=== PATIENT | female | born 1925 | race Caucasian/White ===

== ENCOUNTER 2016-08-04 16:21 | Emergency (ER) | payer MEDICARE ==
[~2016-08-04] VITALS: Ht 154.9 cm; Wt 44.7 kg
[~2016-08-04 16:21] MED LIST: ACDPT PO; ASP81CT PO; CIPR500T78 PO; CITALOPRAM PO; CLOP75TA PO; CTLP20T PO; FRSM40T PO; KCL20TCR PO; LISI2.5T PO; Lisinopril PO; MTP25TSR PO; OMEPRAZOLE; PNT40TEC PO; PRAVASTATIN PO; RAMI2.5C PO; RAMIPRIL PO; RMP2.5C PO; SIMV40TA4 PO; SMV20T PO
--- NOTE | 2016-08-04 16:40 | ED Lower Extremity ---
General Chief Complaint: Lower Extremity Stated Complaint: R FOOT INJ Source: patient Exam Limitations: no limitations History of Present Illness Time seen by provider: 16:35 Initial Comments The patient is an 89-year-old white female who lives alone. She was in her kitchen and suddenly felt weak and decided she needed to sit down. She attempted to sit on the floor and somehow rolled her right ankle underneath her. Her neighbor came by serendipitously and found her on the floor. She attempted to help her up but the patient was unwilling to stand on her right foot because of pain. 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 Onset: just prior to arrival Pain/Injury Location: right ankle Method of Injury: twisted Allergies and Home Medications Allergies Coded Allergies: codeine (Verified Allergy, Unknown, RASH, 05/03/14) Swelling morphine (Verified Allergy, Unknown, RASH, 05/03/14) Swelling Home Medications Acetaminophen/Diphenhydramine 1 Ea Tab, 1 TAB PO HS, (Reported) Aspirin 81 Mg Chew, 81 MG PO DAILY, (Reported) Citalopram Hydrobromide 20 Mg Tablet, 20 MG PO HS, (Reported) Clopidogrel Bisulfate 75 Mg Tablet, 75 MG PO DAILY, (Reported) Metoprolol Succinate 25 Mg Tab, 12.5 MG PO DAILY, (Reported) TAKES 1/2 (25MG) TABLET Pantoprazole Sod 40 Mg Tab, 40 MG PO DAILY, (Reported) Simvastatin 40 Mg Tablet, 40 MG PO HS, (Reported) [Lisinopril] 10 MG TAB, 10 MG PO DAILY, #30 Ref 1 Prescribed by: BRANDT GERBER on 05/04/14 8631 Constitutional: see HPI EENTM: hearing loss Respiratory: no symptoms reported Cardiovascular: vascular heart diseas Gastrointestinal: no symptoms reported Genitourinary: no symptoms reported Musculoskeletal: joint pain Skin: no symptoms reported Psychiatric/Neurological: No Symptoms Reported Past Gawcekw-Fyarpr-Kcmwrg Hx Patient Social History Alcohol Use: Occasionally Uses Recreational Drug Use: No Smoking Status: Never a Smoker Recent Foreign Travel: No Contact w/Someone Who Travel: No Immunizations Up To Date Tetanus Booster (TDap): Unknown Date of Pneumonia Vaccine: Feb 04, 2014 Date of Influenza Vaccine: Feb 04, 2014 Surgeries HX Surgeries: Yes (HEART STENTS) Surgeries: Coronary Stent, Hysterectomy Respiratory Hx Respiratory Disorders: No Cardiovascular Hx Cardiac Disorders: Yes Cardiac Disorders: Coronary Artery Disease, Heart Attack, High Cholesterol, Hypertension Neurological Hx Neurological Disorders: No Reproductive System Hx Reproductive Disorders: No Sexually Transmitted Disease: No HIV/AIDS: No Genitourinary Hx Genitourinary Disorders: No Gastrointestinal Hx Gastrointestinal Disorders: Yes Gastrointestinal Disorders: Gastroesophageal Reflux Musculoskeletal Hx Musculoskeletal Disorders: Yes (CMT disease) Endocrine Hx Endocrine Disorders: No HEENT HX ENT Disorders: Yes HEENT Disorders: Cataract Hearing Impairment: Hard of Hearing, Hearing Aide Left Cancer Hx Cancer: No Psychosocial Hx Psychiatric Problems: No Integumentary HX Skin/Integumentary Disorder: No Blood Transfusions Hx Blood Disorders: No Adverse Reaction to a Blood Tr: No (No hx of transfusion) Family Medical History Significant Family History: Cancer Family Medial History: Neoplasm 19 MOTHER Physical Exam Vital Signs Vital Sign - Last 12Hours 08/04/16 16:23 Temp 98.3 Pulse 68 Resp 18 B/P (MAP) 153/81 O2 Delivery Room Air Capillary Refill : General Appearance: mild distress, moderate distress HEENT: normal ENT inspection Neck: full range of motion Cardiovascular: normal peripheral pulses, regular rate, rhythm, no edema, no gallop, no JVD, no murmur Respiratory: chest non-tender, lungs clear, normal breath sounds, no respiratory distress, no accessory muscle use Comments There is modest swelling over the lateral aspect of the right ankle and distal fibula. No ecchymosis is noted. She indicates significant pain to light touch or minimal passive range of motion. Progress/Results/Core Measures Results/Orders My Orders Orders - LISETTE DASILVA MD Ankle, Right, 3 Views (08/04/16 16:29) Vital Signs/I&O Vital Sign - Last 12Hours 08/04/16 16:23 Temp 98.3 Pulse 68 Resp 18 B/P (MAP) 153/81 O2 Delivery Room Air Departure Communication Progress Notes 0452 x-ray by my view and radiology's opinion shows a very distal, nondisplaced , and incomplete fracture of the right fibula. The patient had a difficult problem understanding with her hearing loss. Her neighbor who brought her was fully briefed. Impression Impression: Primary Impression: sprain/nondisplaced distal fibular fracture right ankle Disposition: 01 HOME, SELF-CARE Condition: Stable/Unchanged Departure-Patient Inst. Decision time for Depature: 17:16 Referrals: STEVAN MARQUEZ MD (PCP/Family) Primary Care Physician Patient Instructions: Ankle Fracture (DC) Add. Discharge Instructions: All discharge instructions reviewed with patient and/or family. Voiced understanding. Elevate and ice tonight. You may need help to remove the boot. You should use until you can walk without pain. You must use a walker as well. The boot may be removed to bathe. LISETTE DASILVA MD August 04, 2016 16:40
--- NOTE | 2016-08-04 16:49 | Diagnostic Imaging Report ---
EXAMINATION: Three views of the right ankle. INDICATION: Injury. FINDINGS: There is an indeterminate transverse lucency through the inferior aspect of the lateral malleolus seen raising the question of a nondisplaced incomplete fracture. Otherwise, no fracture or dislocation is seen. The ankle mortise is normal in configuration. There is soft tissue swelling laterally. IMPRESSION: Indeterminate transverse lucency through the inferior aspect of the lateral malleolus raising question of a nondisplaced incomplete fracture at this location. Correlate clinically and with followup exam in 10 days, if needed. Dictated by: Dictated on workstation # [id number]
[2016-08-04 17:27] VITALS: BP 153/81
== END 2016-08-04 17:27 | disposition home or self-care (01) ==
LOC: EDUNIT# 16:21 → ER 16:23
DX: S82.491A Other fracture of shaft of right fibula, initial encounter for closed fracture (principal); I10 Essential (primary) hypertension; I25.10 Atherosclerotic heart disease of native coronary artery without angina pectoris; H91.93 Unspecified hearing loss, bilateral; Z79.82 Long term (current) use of aspirin; Z79.02 Long term (current) use of antithrombotics/antiplatelets; Z79.899 Other long term (current) drug therapy; Z95.5 Presence of coronary angioplasty implant and graft; W01.0XXA Fall on same level from slipping, tripping and stumbling without subsequent striking against object, initial encounter; Y92.010 Kitchen of single-family (private) house as the place of occurrence of the external cause; Y99.8 Other external cause status
CPT/HCPCS: 73610; 99283